=== PATIENT | male | born 1945 ===

== ENCOUNTER 2019-06-18 05:00 | Day surgery (SDC) | payer OTHER ==
[~2019-06-18 05:00] MED LIST: ENALAPRIL MALEAT5 MG PO; ZOCOR PO
== END 2019-06-18 15:45 | disposition home or self-care (01) ==
LOC: CIR.AMB 05:00 → ADM 08:15 → CIR.AMB 15:45
DX: K40.90 Unilateral inguinal hernia, without obstruction or gangrene, not specified as recurrent (principal)